=== PATIENT | male | born 2000 | race Asian ===

== ENCOUNTER 2020-01-12 08:51 | Emergency (ER) | payer OTHER ==
[2020-01-12 09:06] VITALS: BP 131/76; PULSE 73; TEMP 98.8; BMI 35.5
--- NOTE | 2020-01-12 09:26 | PDOC ---
History of Present Illness - General Chief Complaint: Pain, Acute Stated Complaint: redened area Time Seen by Provider: 01/12/20 09:03 History Source: Patient Exam Limitations: No Limitations - History of Present Illness Initial Comments: 01/12/20 09:22 HPI 19 YOM with no sig medical history presenting with pilonidal cyst/abscess x 5 days, worsening pain and swelling. denies trauma or shaving to the area. no fever or chills or discharge. Review of Systems Constitutional: no fevers or chills. MUSCULOSKELETAL: No joint pain and swelling. No muscle pain/arthralgias. Back: no back pain SKIN: +redness, abscess. no discharge, no rash. Hematologic: no easy bruising/bleeding. NEUROLOGIC: No weakness, numbness or tingling. Allergic/Immunologic: no allergies All other systems reviewed and negative, or as documented in HPI. physical exam General: NAD, well appearing Vascular: 2+ radialis pulses symmetric and equal. 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 sensation grossly intact in median/radial/ulnar distribution. MSK: GONCALVES x4 Skin: color normal color, warm and well perfused. pilonidal cyst/abscess, erythema measuring 2x4cm with fluctuance and tenderness at the gluteal crease. Back: pilonidal cyst/abscess, erythema measuring 2x4cm with fluctuance and tenderness at the gluteal crease. Past History - Medical History Allergies/Adverse Reactions: Allergies Allergy/AdvReac Type Severity Reaction Status Date / Time No Known Allergies Allergy Unverified 01/12/20 09:12 Home Medications: Ambulatory Orders NK [No Known Home Medication] 01/12/20 COPD: No - Immunization History Immunization Up to Date: Yes - Psycho-Social/Smoking History Smoking History: Never smoked Have you smoked in the past 12 months: No Information on smoking cessation initiated: No - Substance Abuse Hx (Audit-C & DAST Scrn) How often the patient has a drink containing alcohol: Never Score: In Men: 4 or > Positive; In Women: 3 or > Positive: 0 Screen Result (Pos requires Nsg. Audit-10AR): Negative In the last yr the pt used illegal drug/Rx for NonMed reason: No Score: Yes response is considered Positive: 0 Screen Result (Positive result requires Nsg. DAST-10): Negative *Physical Exam - Vital Signs Last Vital Signs Temp Pulse Resp BP Pulse Ox 98.8 F 73 18 131/76 100 01/12/20 08:54 01/12/20 08:54 01/12/20 08:54 01/12/20 08:54 01/12/20 08:54 Procedures - Incision and Drainage I&D Site: Bilateral: Buttock (midline, gluteal crease.) Anesthesia: 1% Lidocaine Volume(ml): 4 Blade Size: 11 Attempts: 1 Iodinated Packin/ in Complications: none Dressing: Yes Progress: 01/12/20 09:29 copious purulent discharge expelled, loculations broken up Medical Decision Making - Medical Decision Making 01/12/20 09:25 A/P 19 year old with fluctuant erythematous indurated mass with fluctuance, measuring 2x4cm, c/w abscess. Lido anesthetic, betadine prep, I+D, pack, No ANTIBIOTICS indicated, no systemic features. pt does have hairy buttocks so likely from ingrown hair as nidus for the infection/abscess. Vital Signs Temp Pulse Resp BP Pulse Ox 98.8 F 73 18 131/76 100 01/12/20 08:54 01/12/20 08:54 01/12/20 08:54 01/12/20 08:54 01/12/20 08:54 Incision and drainage procedure Verbal consent were obtained. The indication for the procedure was clinical suspicion for an abscess of the pilonidal region. The region was anesthetized with 1% lido without epinephrine. The most fluctuant portion of the abscess was incised with an 11 blade scalpel. The abscess cavity of explored and evacuated, all loculations were broken up with a curved hemostat. The cavity was then packed with packing material and dressed with a clean gauze dressing. I was present for this entire procedure and there were no complications. packing placed return in 2 days for wound check sitz baths and cleaning/wound care advised 01/12/20 09:26 Discharge - Discharge Information Problems reviewed: Yes Clinical Impression/Diagnosis: Cyst, pilonidal, with abscess Condition: Stable Disposition: HOME - Admission No - Follow up/Referral Referrals: Emergency Dept,Physician, [Emergency Physician] - - Patient Discharge Instructions Patient Printed Discharge Instructions: DI for Pilonidal Cyst Drainage and Removal, DI for Incision and Drainage of a Skin Abscess Additional Instructions: Discharge You have had an abscess drained in the Emergency Department and you may have had packing placed in the wound to help the abscess continue to drain at home. Please do not remove the packing. You may shower with the packing in place - let the soapy water clean your wound, do not scrub at it. Keep your wound covered to prevent transmission of infection to other people. Follow up with your primary care physician or in the Emergency Department in XXX days for a wound check and/or packing removal. Return to the Emergency Department immediately if you develop any of the following symptoms: Fevers, Increased redness or swelling around where your abscess was, Increased pain, or Generalized weakness or vomiting Please return to ED or see your doctor in 2 days for wound recheck and/or packing change. Please Keep the wound covered and dry. Once a day: wash the wound with soap/water, apply bacitracin or neosporin and re-cover the wound. If you have any worsening of symptoms, including severe pain/swelling/numbness/changes in sensation/weakness, redness which expands more than it is right now or any other concerns please return to the ED immediately. Please return to ED or your Primary Care Doctor in 2 days for a wound check and packing change. Keep the wound covered and dry as directed. Return to ED for any increased pain, redness, or fever. - Post Discharge Activity
== END 2020-01-12 09:36 | disposition home or self-care (01) ==
LOC: FER 08:51
DX: L05.01 Pilonidal cyst with abscess (principal)
CPT/HCPCS: 99282-25

== ENCOUNTER 2021-05-02 02:03 | Emergency (ER) | payer OTHER ==
[2021-05-02 02:44] VITALS: BP 122/77; PULSE 85; TEMP 97.6; BMI 32.8
== END 2021-05-02 04:23 | disposition home or self-care (01) ==
LOC: JER 02:03
DX: R00.2 Palpitations (principal)
CPT/HCPCS: 71046-TC-FY; 93005; 93010; 99284-25